=== PATIENT | male | born 1970 | race Caucasian/White ===

== ENCOUNTER 2021-09-17 17:35 | Inpatient (IN) | payer BC ==
[2021-09-17 18:45] LABS: Bilirubin Neg (Negative); Blood, Urine 50 (Negative); Clarity Slightly Cloudy (Clear); Glucose, Urine (Dipstick) Normal (Negative); Ketone, Urine 15 mg/dL (Negative); Leukocyte 500 (Negative); Nitrite Negative (Negative); Protein, Urine (Dipstick) 30 mg/dl (Neg-Trace); Specific Gravity, Urine 1.015 (1.002-1.036); Urobilinogen Normal mg/dL (Less than 2)
[2021-09-17 18:49] LABS: #Monocytes 0.6 10x3/uL (0.0-1.1); #Neutrophils 14.3 10x3/uL (1.5-8.4); %Basophils 0.2 % (0.0-2.0); %Eosinophils 0.1 % (0.0-6.0); %Monocytes 3.7 % (0.0-10.0); %Neutrophils 88.6 % (40.0-75.0); Mean Corpuscular HGB CONC 33.3 g/dL (32.0-36.0); Mean Corpuscular Hemoglobin 29.5 pg (27.0-33.0); Mean Corpuscular Volume 88.6 fl (81.2-95.1); Mean Platelet Volume 11.3 fl (7.4-10.4); Platelet Count 193 10x3/uL (150-450); RBC Distribution Width 13.6 % (11.5-14.5); Red Blood Cell (RBC) Count 4.75 10x6/uL (4.32-5.72); White Blood Cell (WBC) Count 16.1 10x3/uL (3.5-10.5)
[2021-09-17 18:52] LABS: Bacteria/HPF 4+ HPF (None Seen); Mucous/LPF 2+ LPF (<2+); RBC/HPF 0-3 HPF (0-3); Squamous Epithelial 0-3 HPF (0-3); WBC/HPF Greater than 50 HPF (0-3); White Blood Cell Cast 0-3 LPF (None Seen)
[2021-09-17] MEDS ORDERED: Acetaminophen 500 MG TAB ONE (19:05)
[2021-09-17 19:07] LABS: ALT (SGPT) 13 U/L (8-55); AST (SGOT) 23 U/L (5-34); Albumin 4.3 g/dL (3.5-5.0); Alkaline Phosphatase 59 U/L (40-110); Anion Gap 15 mmol/L (10-20); BUN (Urea Nitrogen) 13 mg/dL (8.4-25.7); Bilirubin, Total 1.4 mg/dL (0.2-1.2); Calc. Creatinine Clearance 0 mL/min (70-130); Calcium 9.2 mg/dL (7.8-10.44); Carbon Dioxide 22 mmol/L (22-29); Chloride 103 mmol/L (98-107); Globulin 2.9 g/dL (2.4-3.5); Glucose 92 mg/dL (70-105); Potassium 3.7 mmol/L (3.5-5.1); Protein, Total 7.2 g/dL (6.0-8.3); Sodium 136 mmol/L (136-145)
[2021-09-17] MEDS ORDERED: Ondansetron PF 4 MG/2 ML Vial IVP PRN (20:22)
[2021-09-17] MEDS ORDERED: Zolpidem Tartrate 5 MG TAB PO PRN (20:22)
[2021-09-17] MEDS ORDERED: Calcium Carbonate 500 MG ChewTAB PO PRN (20:22)
[2021-09-17] MEDS ORDERED: Senokot S 8.6-50 MG TAB PO PRN (20:22)
[2021-09-17] MEDS ORDERED: Cefepime 2 GM VIAL ONE (20:34)
[2021-09-17 20:43] LABS: SARS-CoV-2 NAA Rapid Test Not Detected (NotDetected)
[2021-09-17] MEDS ORDERED: Doxycycline 100 MG in Syringe 0 ML IVPB SCH (21:00)
[2021-09-17] MEDS ORDERED: Morphine 4 MG/ML VIAL SLOW IVP PRN (21:50)
[2021-09-17] MEDS ORDERED: Tamsulosin HCl 0.4 MG CAP PO SCH (22:00)
[2021-09-17] MEDS ORDERED: Phenazopyridine HCl 97.5 MG TABLET PO SCH (22:00)
[2021-09-17] MEDS: Lactated Ringer's 1,000 ML IV SCH (22:34)
[2021-09-17] MEDS: HYDROcodone/Acetaminophen 5/325 mg Tablet PO PRN (22:43)
[2021-09-17] MEDS: Ketorolac Tromethamine 30 MG/ML VIAL IVP SCH (23:44)
[2021-09-17] MEDS ORDERED: FLU VACC QS2021-22(6MOS UP)/PF 60 MCG/0.5 ML SYRINGE IM ONE (23:45)
[2021-09-18] MEDS: cefTRIAXone\\ROCEPHIN 2 GM in Sodium Chloride 0.9% 100 ML IVPB SCH ×2 (01:46→23:19)
[2021-09-18 04:31] LABS: #Monocytes 1.1 10x3/uL (0.0-1.1); %Basophils 0.2 % (0.0-2.0); %Eosinophils 0.1 % (0.0-6.0); %Lymphocytes 6.2 % (18.0-47.0); %Monocytes 7.1 % (0.0-10.0); %Neutrophils 85.7 % (40.0-75.0); Hemoglobin 12.6 g/dL (13.5-17.5); Mean Corpuscular HGB CONC 33.2 g/dL (32.0-36.0); Mean Corpuscular Hemoglobin 29.4 pg (27.0-33.0); Mean Corpuscular Volume 88.6 fl (81.2-95.1); Mean Platelet Volume 10.8 fl (7.4-10.4); Platelet Count 162 10x3/uL (150-450); Red Blood Cell (RBC) Count 4.28 10x6/uL (4.32-5.72); White Blood Cell (WBC) Count 15.2 10x3/uL (3.5-10.5)
[2021-09-18 04:55] LABS: Anion Gap 12 mmol/L (10-20); BUN (Urea Nitrogen) 15 mg/dL (8.4-25.7); Calc. Creatinine Clearance 82 mL/min (70-130); Calcium 8.3 mg/dL (7.8-10.44); Carbon Dioxide 26 mmol/L (22-29); Chloride 107 mmol/L (98-107); Glucose 105 mg/dL (70-105); Potassium 4.2 mmol/L (3.5-5.1); Sodium 141 mmol/L (136-145)
[2021-09-18] MEDS: Ketorolac Tromethamine 30 MG/ML VIAL IVP SCH (06:17)
[2021-09-18] MEDS ORDERED: Calcium Carbonate 500 MG ChewTAB PO PRN (06:17)
[2021-09-18] MEDS: Lactated Ringer's 1,000 ML IV SCH ×3 (06:24→20:45)
[2021-09-18] MEDS: Acetaminophen 325 MG TAB PO PRN ×2 (09:55→16:35)
[2021-09-18] MEDS: Enoxaparin Sodium 40 MG/0.4 ML SYRINGE SC SCH (09:56)
[2021-09-18] MEDS: Phenazopyridine HCl 97.5 MG TABLET PO SCH ×2 (09:56→21:13)
[2021-09-18] MEDS: HYDROcodone/Acetaminophen 5/325 mg Tablet PO PRN ×2 (13:31→21:13)
[2021-09-18] MEDS: Tamsulosin HCl 0.4 MG CAP PO SCH (21:13)
[2021-09-19] MEDS: Acetaminophen 325 MG TAB PO PRN ×2 (05:38→17:01)
[2021-09-19] MEDS: Enoxaparin Sodium 40 MG/0.4 ML SYRINGE SC SCH (09:25)
[2021-09-19] MEDS: Phenazopyridine HCl 97.5 MG TABLET PO SCH ×2 (09:27→21:13)
[2021-09-19] MEDS: Tamsulosin HCl 0.4 MG CAP PO SCH (21:13)
[2021-09-19] MEDS: cefTRIAXone\\ROCEPHIN 2 GM in Sodium Chloride 0.9% 100 ML IVPB SCH (23:54)
[2021-09-20 04:54] LABS: #Eosinphils 0.1 10x3/uL (0.0-0.5); %Basophils 0.3 % (0.0-2.0); %Eosinophils 0.9 % (0.0-6.0); %Lymphocytes 13.5 % (18.0-47.0); %Monocytes 9.5 % (0.0-10.0); %Neutrophils 75.5 % (40.0-75.0); Hemoglobin 11.7 g/dL (13.5-17.5); Mean Corpuscular HGB CONC 33.8 g/dL (32.0-36.0); Mean Corpuscular Hemoglobin 30.3 pg (27.0-33.0); Mean Corpuscular Volume 89.6 fl (81.2-95.1); Platelet Count 149 10x3/uL (150-450); RBC Distribution Width 14.3 % (11.5-14.5); Red Blood Cell (RBC) Count 3.86 10x6/uL (4.32-5.72); White Blood Cell (WBC) Count 10.6 10x3/uL (3.5-10.5)
[2021-09-20 05:07] LABS: Anion Gap 12 mmol/L (10-20); BUN (Urea Nitrogen) 8 mg/dL (8.4-25.7); Calc. Creatinine Clearance 103 mL/min (70-130); Calcium 8.4 mg/dL (7.8-10.44); Carbon Dioxide 26 mmol/L (22-29); Chloride 108 mmol/L (98-107); Glucose 85 mg/dL (70-105); Potassium 4.3 mmol/L (3.5-5.1); Sodium 142 mmol/L (136-145)
[2021-09-20] MEDS: Phenazopyridine HCl 97.5 MG TABLET PO SCH (08:50)
[2021-09-20] MEDS: Enoxaparin Sodium 40 MG/0.4 ML SYRINGE SC SCH (08:50)
[2021-09-20] MEDS: Acetaminophen 325 MG TAB PO PRN (08:50)
[2021-09-20] MEDS ORDERED: Ciprofloxacin 500 MG TAB PO SCH ×2 (12:00→20:00)
[2021-09-20 13:44] VITALS: BP 116/70; TEMP 98.6
== END 2021-09-20 15:25 | disposition home or self-care (01) | DRG 872 ==
LOC: CSHERS 17:35 → CSHTELE 21:42
PROVIDERS: ADMIT Student in an Organized Health Care Education/Training Program; ATTEND Internal Medicine
DX: A41.9 Sepsis, unspecified organism (principal); N10 Acute pyelonephritis; Z20.822 Contact with and (suspected) exposure to COVID-19; E86.0 Dehydration; K21.9 Gastro-esophageal reflux disease without esophagitis; Z87.442 Personal history of urinary calculi; B96.89 Other specified bacterial agents as the cause of diseases classified elsewhere; Z87.438 Personal history of other diseases of male genital organs
CPT/HCPCS: 36415; 74176; 80048; 80053; 81003; 81015; 83605; 84145; 85025; 87040; 87077; 87086; 87186; 93005; 96365; J0692; J0696; J1650; J1885; J3370; J3490; J7120; U0002

== ENCOUNTER 2023-12-20 23:42 | Emergency (ER) | payer BC ==
[2023-12-21] MEDS ORDERED: Lidocaine 1% MPF 2 ML VIAL ONE (00:06)
[2023-12-21] MEDS ORDERED: cefTRIAXone (ROCEPHIN) 500 MG VIAL ONE (00:06)
[2023-12-21] MEDS ORDERED: Emtricitabine/Tenofovir 200-300 MG TAB PO SCH (00:15)
[2023-12-21] MEDS ORDERED: Raltegravir Potassium 400 MG TAB PO SCH (00:15)
[2023-12-21] MEDS ORDERED: Azithromycin 250 MG TAB ONE (00:25)
[2023-12-21 00:26] LABS: #Monocytes 0.9 10x3/uL (0.0-1.1); #Neutrophils 5.5 10x3/uL (1.5-8.4); %Basophils 0.5 % (0.0-2.0); %Eosinophils 0.2 % (0.0-6.0); %Lymphocytes 25.5 % (18.0-47.0); %Monocytes 10.3 % (0.0-10.0); %Neutrophils 63.3 % (40.0-75.0); Hematocrit 42.1 % (38.8-50.0); Hemoglobin 14.3 g/dL (13.5-17.5); Mean Corpuscular Hemoglobin 30.2 pg (27.0-33.0); Mean Corpuscular Volume 88.8 fl (81.2-95.1); Mean Platelet Volume 10.1 fl (7.4-10.4); Platelet Count 260 10x3/uL (150-450); RBC Distribution Width 14.1 % (11.5-14.5); Red Blood Cell (RBC) Count 4.74 10x6/uL (4.32-5.72); White Blood Cell (WBC) Count 8.7 10x3/uL (3.5-10.5)
[2023-12-21 00:38] LABS: ALT (SGPT) 24 U/L (8-55); AST (SGOT) 28 U/L (5-34); Albumin 4.3 g/dL (3.5-5.0); Alkaline Phosphatase 56 U/L (40-110); Anion Gap 16 mmol/L (10-20); BUN (Urea Nitrogen) 13 mg/dL (8.4-25.7); Bilirubin, Total 0.6 mg/dL (0.2-1.2); Calc. Creatinine Clearance 0 mL/min (70-130); Calcium 9.4 mg/dL (7.8-10.44); Carbon Dioxide 23 mmol/L (22-29); Chloride 105 mmol/L (98-107); Estimated GFR 103; Globulin 2.6 g/dL (2.4-3.5); Glucose 100 mg/dL (70-105); Potassium 4.7 mmol/L (3.5-5.1); Protein, Total 6.9 g/dL (6.0-8.3); Sodium 139 mmol/L (136-145)
[2023-12-21 01:26] LABS: HIV (1/2) Antibody/Antigen Non-Reactive (NonReactive); HIV 1/2 INDEX 0.11 S/CO (<1.00)
== END 2023-12-21 01:04 | disposition home or self-care (01) ==
LOC: CSHERS 23:42
DX: Z20.2 Contact with and (suspected) exposure to infections with a predominantly sexual mode of transmission (principal)
CPT/HCPCS: 36415; 80053; 85025; 87389; 96372; 99283; J0696

== ENCOUNTER 2025-01-20 10:17 | Day surgery (SDC) | payer BC ==
[2025-01-13 13:24] VITALS: BMI 20.2
[2025-01-20] MEDS ORDERED: CEFAZOLIN 2 GM VIAL ONE (11:37)
[2025-01-20] MEDS ORDERED: PROPOFOL 20 ML ONE (11:37)
[2025-01-20] MEDS ORDERED: Bupivacaine/Epinephrine 0.25% 30 ML VIAL ONE (11:37)
[2025-01-20] MEDS ORDERED: Rocuronium Bromide 10 MG/ML (10ML VIAL) ONE (11:38)
[2025-01-20] MEDS ORDERED: Fentanyl 100 MCG/2 ML VIAL ONE (11:38)
[2025-01-20] MEDS ORDERED: Lidocaine 2% PF 5 ML VIAL ONE (11:39)
[2025-01-20] MEDS ORDERED: ePHEDrine Sulfate 50 MG/10 ML VIAL ONE (13:06)
[2025-01-20] MEDS ORDERED: SUGAMMADEX SODIUM 200 MG/2 ML VIAL ONE (13:27)
[2025-01-20] MEDS ORDERED: Ketorolac Tromethamine 30 MG (1 mL) VIAL ONE (13:27)
[2025-01-20] MEDS ORDERED: Ondansetron PF 4 MG/2 ML Vial ONE (13:27)
[2025-01-20] MEDS ORDERED: HYDROcodone/Acetaminophen 5/325 mg Tablet ONE (14:23)
== END 2025-01-20 15:30 | disposition home or self-care (01) ==
LOC: CSHSDC 10:17
PROVIDERS: ATTEND Surgery
PROC: 0YU64JZ Supplement Left Inguinal Region with Synthetic Substitute, Percutaneous Endoscopic Approach (ICD-10-PCS; principal; 2025-01-20)
DX: K40.90 Unilateral inguinal hernia, without obstruction or gangrene, not specified as recurrent (principal); Z88.1 Allergy status to other antibiotic agents; Z91.013 Allergy to seafood; Z79.1 Long term (current) use of non-steroidal anti-inflammatories (NSAID)
CPT/HCPCS: C1781; J1885; J2405; J2704; J3010; S2900